=== PATIENT | male | born 1980 | race Caucasian/White ===

== ENCOUNTER 2017-06-06 08:03 | Emergency (ER) | payer MEDICAID ==
--- NOTE | 2017-06-06 08:30 | ED Physician Chart ---
ED Chief Complaint/HPI - Patient Information Date Seen:: 06/06/17 Time Seen:: 08:15 Chief Complaint:: abdominal pain History of Present Illness:: Patient has had right upper quadrant and left lower quadrant pain and vomiting and diarrhea for last 2-3 days. He had 3 times rectal bleeding this morning. Patient was admitted here 5 days ago for abdominal pain and discharged the next day. Allergies:: Allergies Allergy/AdvReac Type Severity Reaction Status Date / Time cyclobenzaprine Allergy Verified 05/25/17 16:23 [From Flexeril] dicyclomine [From Bentyl] Allergy Verified 05/25/17 16:23 ketorolac [From Toradol] Allergy Verified 05/25/17 16:23 Sulfa (Sulfonamide Allergy Verified 05/25/17 16:23 Antibiotics) Historian:: Patient Review:: Nurse's Note Reviewed ED Review of Systems - Review of Systems General/Constitutional: No fever, No chills Skin: No skin lesions Head: No headache Eyes: No loss of vision ENT: No earache Neck: No neck pain Cardio Vascular: No chest pain, No palpitations Pulmonary: No SOB GI: Pain, Hematochezia G/U: No dysuria Musculoskeletal: No bone or joint pain Endocrine: No polyuria Psychiatric: No prior psych history Hematopoietic: No bruising, No lymphadenopathy Allergic/Immuno: No urticaria Neurological: No syncope ED Past Medical History - Past Medical History Past Medical History: Seizures, Other (patient's had Crohn's disease since age 3. Patient had colon cancer diagnosed 5 years ago for he had radiation and chemotherapy. He's had no treatment for his colon cancer in the last 3 years) Family History: HTN, Other (renal disease) Social History: Non Smoker, No Alcohol, No Drug Use Surgical History: other (bilateral shoulder replacement) Psychiatricy History: None Medication: Reviewed Family Medical History - Family Member Mother History Unknown: Yes Father Name:: father Ethnicity: Non- Living Status: Hx Family Cancer: Yes (COLON CA) ED Physical Exam - Physical Examination General/Constitutional: Well-developed, well-nourished, Alert, No distress Head: Atraumatic Eyes: Lids, conjuctiva normal, PERRL ENMT: External ears, nose nl Neck: No nuchal rigidity Respiratory: Nl effort/Exclusion, Clear to Auscultation, No Wheeze/Rhonchi/Rales Cardio Vascular: RRR, No murmur, gallop, rubs GI: No organomegaly, No hernia, Normal BS's, Nondistended Other GI comments:: RUQ and LLQ tenderness Extremities: No tenderness or effusion Neuro/Psych: Alert/oriented, No focal deficits Misc: Normal back ED Labs/Radiology/EKG Results - Lab Results Results: Laboratory Results - last 24 hr 06/06/17 06/06/17 08:50 08:50 WBC 12.6 H D RBC 3.77 L Hgb 10.3 L Hct 31.1 L D MCV 82.4 MCH 27.4 MCHC Differential 33.2 RDW 17.0 Plt Count 284 MPV 7.0 Sodium 137 Potassium 3.7 Chloride 102 Carbon Dioxide 27.1 Anion Gap 11.6 BUN 16 Creatinine 0.7 Est GFR ( Amer) > 60.0 Est GFR (Non-Af Amer) > 60.0 BUN/Creatinine Ratio 22.9 Glucose 175 H Calcium 9.2 Magnesium 2.3 Lipase 48 ED Assessment - Assessment General Assessment: On 05/30/2017 patient's hemoglobin was 11.7 and today is 10.3. The patient does not need admission because he is not that much more anemic than on 05/30. He states he does not have diabetes. However on 03/30/2017 his glucose was 134 and today is 175. I informed the patient he probably does has diabetes and he needs to follow-up both for his elevated blood sugar, his colon ca and his Crohn 's disease. ED Septic Shock - . Is Septic Shock (SBP<90, OR Lactate>4 mmol\L) present?: No ED Reassessment (Disposition) - Reassessment Reassessment Condition:: Improved - Diagnosis Diagnosis:: Abdominal pain; anemia; rectal bleeding; history of colon ca; history of Crohn' s disease - Aftercare/Follow up Instructions Aftercare/Follow-Up Instructions:: Refer to Discharge Instructions - Patient Disposition Discharge/Transfer:: Home Condition at Disposition:: Stable, Improved
[2017-06-06] MEDS ORDERED: Sodium Chloride 0.9% 1,000 ML IV ONE (08:31)
[2017-06-06] MEDS ORDERED: HYDROmorphone 1 mg/mL 1mL Syr IVP STA ×2 (08:32→10:18)
[2017-06-06] MEDS ORDERED: HYDROmorphone 1 mg/mL 1mL Syr ONE ×2 (08:38→10:09)
[2017-06-06 09:18] LABS: ANION GAP 11.6 (7.0-16.0); BUN - UREA NITROGEN 16 mg/dL (7-25); CALCIUM SERUM 9.2 mg/dL (8.6-10.3); CARBON DIOXIDE 27.1 mEq/L (21.0-31.0); CHLORIDE 102 mEq/L (98-107); CREATININE - SERUM 0.7 mg/dL (0.7-1.3); GFR AFRICAN-AMERICAN > 60.0 ml/min (>90); GFR NON AFRICAN-AMERICAN > 60.0 ml/min; GLUCOSE 175 mg/dL (70-105); LIPASE 48 U/L (11-82); MAGNESIUM 2.3 mg/dL (1.9-2.7); POTASSIUM SERUM 3.7 mEq/L (3.5-5.1); SODIUM SERUM 137 mEq/L (136-145)
[2017-06-06 09:34] LABS: HEMATOCRIT 31.1 % (41.0-60); HEMOGLOBIN 10.3 gm/dL (12-16); LYMPHOCYTE ABSOLUTE 0.3 Th/cmm (1.5-3.0); MEAN CELL VOLUME 82.4 fl (80-99); MEAN CORPUSCULAR HEMOGLOBIN 27.4 pg (26.0-30.0); MEAN CORPUSCULAR HGB CONC 33.2 pg (28.0-36.0); MONOCYTE ABSOLUTE 0.1 Th/cmm (0.3-1.0); NEUTROPHILE ABSOLUTE 12.2 Th/cmm (1.8-8.0); PLATELET COUNT 284 Th/cmm (150-400); RED BLOOD COUNT 3.77 Mil/cmm (4.30-5.70)
[2017-06-06 09:37] LABS: WHITE BLOOD COUNT 12.6 Th/cmm (4.8-10.8)
[2017-06-06 10:13] LABS: BAND NEUTROPHILE 6 % (0-10); LYMPHOCYTE 3 % (20-50); MONOCYTE 1 % (2-10); NEUTROPHILS 90 % (40-80); TOTAL CELLS COUNTED 100
[2017-06-06 10:14] LABS: PLATELET ESTIMATE ADEQUATE (NORMAL)
== END 2017-06-06 11:20 | disposition home or self-care (01) ==
LOC: ER 08:03
DX: K62.5 Hemorrhage of anus and rectum (principal); D64.9 Anemia, unspecified; K50.90 Crohn's disease, unspecified, without complications; Z85.038 Personal history of other malignant neoplasm of large intestine; R10.11 Right upper quadrant pain; R10.32 Left lower quadrant pain; Z88.1 Allergy status to other antibiotic agents; Z88.2 Allergy status to sulfonamides; Z88.8 Allergy status to other drugs, medicaments and biological substances
CPT/HCPCS: 99284; 96374; 36415; 85007; 85027; 83690; 83735; 80048; J2405; J1170; J7030; Z7502